=== PATIENT | male | born 1995 | race Caucasian/White ===

== ENCOUNTER 2018-12-10 14:17 | Emergency (ER) | payer BC ==
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
--- NOTE | 2018-12-10 16:05 | Diagnostic Imaging Report ---
STANFORD HICKMAN [facility] [address] [facility] [address] [place] [address]. [id number] Report Submission Date: Dec 10, 2018 3:12:05 PM CDT Patient Study Name: SEYMOUR JOSEPH Date: Dec 10, 2018 2:54:59 PM CDT Modality Type: DX Gender: M Description: BILAT SHOULDERS 2-3 VIEW : 89 Institution: [facility] Physician: STANFORD HICKMAN BILAT SHOULDERS 2-3 VIEW History: Fall with bilateral shoulder pain Findings: Right:The osseous structures are intact without acute fracture. The joint space and alignment are normal. There is no soft tissue swelling. Left: The osseous structures are intact without fracture. The joint space and alignment are normal. There is no soft tissue abnormality. Impression: 1. No acute osseous abnormality. Electronically signed on Dec 10, 2018 3:12:05 PM CDT by: Sal MICHEL
[2018-12-10 16:11] VITALS: BP 112/68
== END 2018-12-10 16:09 | disposition home or self-care (01) ==
LOC: ED 14:17
DX: S46.912A Strain of unspecified muscle, fascia and tendon at shoulder and upper arm level, left arm, initial encounter (principal); V86.56XA Driver of dirt bike or motor/cross bike injured in nontraffic accident, initial encounter; Y93.55 Activity, bike riding